=== PATIENT | female | born 1930 | race Caucasian/White ===

== ENCOUNTER 2017-12-30 17:55 | Observation (INO) | payer OTHER ==
--- NOTE | 2017-12-30 21:19 | PDOC ---
History of Present Illness - General History Source: Patient <DonaldCarlos schmitz - Last Filed: 12/30/17 21:50> - General History Source: Patient Exam Limitations: No Limitations - History of Present Illness Initial Comments: 12/30/17 21:58 The patient is a 87 year old female with a significant PMH of diverticulosis ( on baby aspirin), chronic back pain, osteoporosis, afib(on eliquis), hypothyroidism, and hypertension who presents to the emergency department with a head injury s/p fall earlier today. The patient reports that she was outside earlier today when a dog came onto her subsequently leading her to fall back. The patient reports hitting her head on the pavement. She denies any loc, dizziness, numbness, weakness or tingling sensation. She denies any vision change, chest pain, headache or shortness of breath. She denies any fever, chills, nausea, vomit, diarrhea, constipation or urinary symptoms. The patient denies any other complaints. <Tasia Rai - Last Filed: 12/30/17 23:00> - General Chief Complaint: Injury Stated Complaint: FALL Time Seen by Provider: 12/30/17 21:18 Past History - Past Medical History COPD: No GI Disorders: Yes (DIVERTICULOSIS) HTN: Yes Thyroid Disease: Yes (HYPO) - Surgical History Orthopedic Surgery: Yes (15 YRS AGO TO LT ARM) - Immunization History Immunization Up to Date: Yes - Suicide/Smoking/Psychosocial Hx Smoking History: Never smoked Have you smoked in the past 12 months: No Information on smoking cessation initiated: No Hx Alcohol Use: No Drug/Substance Use Hx: No Substance Use Type: None Hx Substance Use Treatment: No <Carlos Fuentes - Last Filed: 12/30/17 21:50> <Tasia Rai - Last Filed: 12/30/17 23:00> - Past Medical History Allergies/Adverse Reactions: Allergies Allergy/AdvReac Type Severity Reaction Status Date / Time Tetanus Vaccines and Toxoid AdvReac Severe Verified 07/20/17 13:13 [Tetanus Vaccines & Toxoid] Influenza Virus Vaccines AdvReac Verified 07/20/17 13:13 Home Medications: Ambulatory Orders Cholecalciferol (Vitamin D3) [Vitamin D-400] 2,000 unit IU DAILY 01/04/15 Levothyroxine [Synthroid -] 50 mcg PO DAILY 01/04/15 [place]-3 Fatty Acids [[place]-3] 1,000 mg PO DAILY 01/04/15 Ubidecarenone/Vit E Acet [Co Q-10 100 mg Softgel] 1 each PO DAILY 01/04/15 Vitamin E 400 iu PO DAILY 01/04/15 B Complex with Vitamin C [Vitamin B Complex-C] 1 each PO DAILY 01/16/15 Calcium Carbonate/Vitamin D3 [Calcium with Vitamin D Tablet] 1 each PO DAILY 04/22 Apixaban [Eliquis -] 2.5 mg PO BID tablet 07/31/17 Diltiazem Cd [Cardizem Cd -] 120 mg PO DAILY cap.cd.24h 07/31/17 Metoprolol Succinate [Toprol XL -] 50 mg PO BID tab.sr.24h 07/31/17 Furosemide [Lasix -] 20 mg PO WEEKLY 12/30/17 Review of Systems - Review of Systems Able to Perform ROS?: Yes Comments:: 12/30/17 21:58 CONSTITUTIONAL: (+) head injury s/p fall Absent: fever, chills, diaphoresis, generalized weakness, malaise, loss of appetite HEENT: Absent: rhinorrhea, nasal congestion, throat pain, throat swelling, difficulty swallowing, mouth swelling, ear pain, eye pain, visual Changes CARDIOVASCULAR: Absent: chest pain, syncope, palpitations, irregular heart rate, lightheadedness , peripheral edema RESPIRATORY: Absent: cough, shortness of breath, dyspnea with exertion, orthopnea, wheezing, stridor, hemoptysis GASTROINTESTINAL: Absent: abdominal pain, abdominal distension, nausea, vomiting, diarrhea, constipation, melena, hematochezia GENITOURINARY: Absent: dysuria, frequency, urgency, hesitancy, hematuria, flank pain, genital pain MUSCULOSKELETAL: Absent: myalgia, arthralgia, joint swelling SKIN: Absent: rash, itching, pallor HEMATOLOGIC/IMMUNOLOGIC: Absent: easy bleeding, easy bruising, lymphadenopathy, frequent infections ENDOCRINE: Absent: unexplained weight gain, unexplained weight loss, heat intolerance, cold intolerance NEUROLOGIC: Absent: headache, focal weakness or paresthesias, dizziness, unsteady gait, seizure, mental status changes, bladder or bowel incontinence PSYCHIATRIC: Absent: anxiety, depression, suicidal or homicidal ideation, hallucinations. <Fredi,Collisia - Last Filed: 12/30/17 23:00> *Physical Exam - Vital Signs Last Vital Signs Temp Pulse Resp BP Pulse Ox 97.7 F 64 20 195/69 98 12/30/17 18:07 12/30/17 19:44 12/30/17 19:44 12/30/17 19:44 12/30/17 19:44 <Carlos Fuentes - Last Filed: 12/30/17 21:50> - Vital Signs Last Vital Signs Temp Pulse Resp BP Pulse Ox 97.7 F 64 20 195/69 98 12/30/17 18:07 12/30/17 19:44 12/30/17 19:44 12/30/17 19:44 12/30/17 19:44 - Physical Exam Comments: 12/30/17 22:03 GENERAL:(+) abrasion on posterior aspect of scalp that is no longer oozing or bleeding. Small expanding hematoma. Well developed, well nourished. Awake and alert. No acute distress. HEENT: Normocephalic, atraumatic. PERRLA, EOMI. No conjunctival pallor. Sclera are non- icteric. Moist mucous membranes. Oropharynx is clear. NECK: Supple. Full ROM. No JVD. Carotid pulses 2+ and symmetric, without bruits. No thyromegaly. No lymphadenopathy. CARDIOVASCULAR: Regular rate and rhythm. No murmurs, rubs, or gallops. Distal pulses are 2+ and symmetric. PULMONARY: No evidence of respiratory distress. Lungs clear to auscultation bilaterally. No wheezing, rales or rhonchi. ABDOMINAL: Soft. Non-tender. Non-distended. No rebound or guarding. No organomegaly. Normoactive bowel sounds. MUSCULOSKELETAL Normal range of motion at all joints. No bony deformities or tenderness. No CVA tenderness. EXTREMITIES: No cyanosis. No clubbing. No edema. No calf tenderness. SKIN: Warm and dry. Normal capillary refill. No rashes. No jaundice. NEUROLOGICAL: Alert, awake, appropriate. Cranial nerves 2-12 intact. No deficits to light touch and temperature in face, upper extremities and lower extremities. No motor deficits in the in face, upper extremities and lower extremities. Normoreflexic in the upper and lower extremities. Normal speech. Toes are down- going bilaterally. Gait is normal without ataxia. PSYCHIATRIC: Cooperative. Good eye contact. Appropriate mood and affect. <Tasia Rai - Last Filed: 12/30/17 23:00> Heart Score/ECG Review - ECG Intrepretation Comment:: 12/30/17 22:58 Vent Rate: 65 bpm MA interval: 132 ms QRS duration: 78 ms QT/QTc: 434/451 Normal sinus rhythm Normal ECG Documentation prepared by Tasia Rai, acting as medical center representative for Carlos Fuentes MD. <Tasia Rai - Last Filed: 12/30/17 23:00> ED Treatment Course - RADIOLOGY Radiology Studies Ordered: Category Date Time Status CERVICAL SPINE CT W/O CONTR [CT] Stat CT Scan 12/30/17 20:[address] WITHOUT CONTRAST [CT] Stat CT Scan 12/30/17 20:32 Taken <Carlos Fuentes - Last Filed: 12/30/17 21:50> - LABORATORY CBC & Chemistry Diagram: 12/30/17 22:11 12/30/17 22:11 <Tasia Rai - Last Filed: 12/30/17 23:00> Medical Decision Making - Medical Decision Making 12/30/17 22:03 The patient is currently stable in the ED however patient will be kept overnight secondary to patient being on anti coagulant and having an expanding hematoma. Documentation prepared by Tasia Rai acting as medical center representative for Carlos Fuentes MD. <Tasia Rai - Last Filed: 12/30/17 23:00> *DC/Admit/Observation/Transfer - Discharge Dispostion Decision to Admit order: Yes <Carlos Fuentes - Last Filed: 12/30/17 21:50> - Attestations Scribe Attestion: 12/30/17 22:05 Documentation prepared by Tasia Rai acting as medical center representative for Carlos Fuentes DO. <Tasia Rai - Last Filed: 12/30/17 23:00> Diagnosis at time of Disposition: Fall at home, Closed head injury, Scalp hematoma - Discharge Dispostion Condition at time of disposition: Stable
[2017-12-30 22:24] LABS: BASO % 0.8 % (0-2.0); EOS % 0.9 % (0-4.5); HEMATOCRIT 41.5 % (32.4-45.2); HEMOGLOBIN 13.8 GM/dL (10.7-15.3); LYMPH % 17.4 % (8-40); MCH 32.2 pg (25.7-33.7); MCHC 33.3 g/dl (32.0-36.0); MEAN CELL VOLUME 96.6 fl (80-96); MEAN PLT VOLUME 8.4 fl (7.5-11.1); MONO % 7.7 % (3.8-10.2); NEUT % 73.2 % (42.8-82.8); PLATELET COUNT 246 K/MM3 (134-434); RBC 4.29 M/mm3 (3.60-5.2); RDW 14.1 % (11.6-15.6); WHITE BLOOD COUNT 15.7 K/mm3 (4.0-10.0)
[2017-12-30 22:51] LABS: ALBUMIN 4.1 g/dl (3.4-5.0); ANION GAP 8 (8-16); BILIRUBIN,TOTAL 0.4 mg/dL (0.2-1.0); BLOOD UREA NITROGEN 21 mg/dL (7-18); CALCIUM 8.9 mg/dL (8.5-10.1); CHLORIDE 106 mmol/L (98-107); CO2 27 mmol/L (21-32); CREATININE 0.7 mg/dL (0.55-1.02); GLUCOSE,RANDOM 93 mg/dL (74-106); SGPT/ALT 26 U/L (12-78); SODIUM 141 mmol/L (136-145); TOT PROT 7.5 g/dl (6.4-8.2)
[2017-12-30 22:52] LABS: ALK PHOS 69 U/L (45-117)
[2017-12-30 22:54] LABS: INR 1.09 (0.82-1.09); PROTHROMBIN TIME (PATIENT) 12.3 SEC (9.7-13.0)
[2017-12-30 23:12] LABS: POTASSIUM 4.4 mmol/L (3.5-5.1); SGOT/AST 28 U/L (15-37)
[2017-12-31] MEDS ORDERED: METOPROLOL TARTRATE 5 MG/5 ML VIAL IVPUSH ONE (00:44)
[2017-12-31] MEDS ORDERED: METOPROLOL TARTRATE 5 MG/5 ML VIAL ONE (00:45)
--- NOTE | 2017-12-31 00:45 | HP ---
CHIEF COMPLAINT: Head Pain s/p fall PCP: Dr. Orozco HISTORY OF PRESENT ILLNESS: The patient is a 87 year old female with a significant PMH of diverticulosis ( on baby aspirin), chronic back pain, osteoporosis, afib(on eliquis), hypothyroidism, and hypertension who presents to the emergency department with a head injury s/p fall earlier today. The patient reports that she was outside earlier today when a dog came onto her subsequently leading her to fall back. The patient reports hitting her head on the pavement. She denies any loc, dizziness, numbness, weakness or tingling sensation. She denies any vision change, chest pain, headache or shortness of breath. She denies any fever, chills, nausea, vomit, diarrhea, constipation or urinary symptoms. The patient denies any other complaints. ER course was notable for: (1) (2) (3) Recent Travel: None PAST MEDICAL HISTORY: See HPI PAST SURGICAL HISTORY: See HPI Social History: Smoking: Never Alcohol: None Drugs: None Family History: Non- Contributory Allergies Tetanus Vaccines and Toxoid [Tetanus Vaccines & Toxoid] Adverse Reaction (Severe , Verified 07/20/17 13:13) Influenza Virus Vaccines Adverse Reaction (Verified 07/20/17 13:13) HOME MEDICATIONS: Home Medications Medication Instructions Recorded Cholecalciferol (Vitamin D3) 2,000 unit IU DAILY 01/04/15 [Vitamin D-400] Levothyroxine [Synthroid -] 50 mcg PO DAILY 01/04/15 [place]-3 Fatty Acids [[place]-3] 1,000 mg PO DAILY 01/04/15 Ubidecarenone/Vit E Acet [Co Q-10 1 each PO DAILY 01/04/15 100 mg Softgel] Vitamin E 400 iu PO DAILY 01/04/15 B Complex with Vitamin C [Vitamin 1 each PO DAILY 01/16/15 B Complex-C] Calcium Carbonate/Vitamin D3 1 each PO DAILY 01/16/15 [Calcium with Vitamin D Tablet] Apixaban [Eliquis -] 2.5 mg PO BID tablet 07/31/17 Diltiazem Cd [Cardizem Cd -] 120 mg PO DAILY cap.cd.24h 07/31/17 Metoprolol Succinate [Toprol XL -] 50 mg PO BID tab.sr.24h 07/31/17 Furosemide [Lasix -] 20 mg PO WEEKLY 12/30/17 REVIEW OF SYSTEMS CONSTITUTIONAL: Absent: fever, chills, diaphoresis, generalized weakness, malaise, loss of appetite, weight change HEENT: Absent: rhinorrhea, nasal congestion, throat pain, throat swelling, difficulty swallowing, mouth swelling, ear pain, eye pain, visual changes CARDIOVASCULAR: Absent: chest pain, syncope, palpitations, irregular heart rate, lightheadedness , peripheral edema RESPIRATORY: Absent: cough, shortness of breath, dyspnea with exertion, orthopnea, wheezing, stridor, hemoptysis GASTROINTESTINAL: Absent: abdominal pain, abdominal distension, nausea, vomiting, diarrhea, constipation, melena, hematochezia GENITOURINARY: Absent: dysuria, frequency, urgency, hesitancy, hematuria, flank pain, genital pain MUSCULOSKELETAL: Absent: myalgia, arthralgia, joint swelling, back pain, neck pain SKIN: Absent: rash, itching, pallor HEMATOLOGIC/IMMUNOLOGIC: Absent: easy bleeding, easy bruising, lymphadenopathy, frequent infections ENDOCRINE: Absent: unexplained weight gain, unexplained weight loss, heat intolerance, cold intolerance NEUROLOGIC: headache Absent: focal weakness or paresthesias, dizziness, unsteady gait, seizure, mental status changes, bladder or bowel incontinence PSYCHIATRIC: Absent: anxiety, depression, suicidal or homicidal ideation, hallucinations. PHYSICAL EXAMINATION Vital Signs - 24 hr 12/30/17 12/30/17 18:07 19:44 Temperature 97.7 F Pulse Rate 71 Pulse Rate [ 64 Right Radial] Respiratory 18 20 Rate Blood Pressure 168/61 Blood Pressure 195/69 [Right Arm] O2 Sat by Pulse 94 L 98 Oximetry (%) GENERAL: Awake, alert, and fully oriented, in no acute distress. HEAD: +mid occipital hematoma, no active bleed. EYES: Pupils equal, round and reactive to light, extraocular movements intact, sclera anicteric, conjunctiva clear. No lid lag. EARS, NOSE, THROAT: Ears normal, nares patent, oropharynx clear without exudates. Moist mucous membranes. NECK: Normal range of motion, supple without lymphadenopathy, JVD, or masses. LUNGS: Breath sounds equal, clear to auscultation bilaterally. No wheezes, and no crackles. No accessory muscle use. HEART: Irregular rate and rhythm, normal S1 and S2 without murmur, rub or gallop. ABDOMEN: Soft, nontender, not distended, normoactive bowel sounds, no guarding, no rebound, no masses. No hepatomegaly or splenomegaly. MUSCULOSKELETAL: Normal range of motion at all joints. No bony deformities. L- elbow tenderness. No CVA tenderness. UPPER EXTREMITIES: 2+ pulses, warm, well-perfused. No cyanosis. No clubbing. No peripheral edema. LOWER EXTREMITIES: 2+ pulses, warm, well-perfused. No calf tenderness. No peripheral edema. NEUROLOGICAL: Cranial nerves II-XII intact. Normal speech. Gait not observed. PSYCHIATRIC: Cooperative. Good eye contact. Appropriate mood and affect. SKIN: Warm, dry, normal turgor, no rashes +eccyhmotic bruise to L- elbow noted, normal capillary refill. Laboratory Results - last 24 hr 12/30/17 12/30/17 12/30/17 22:11 22:11 22:11 WBC 15.7 H RBC 4.29 Hgb 13.8 Hct 41.5 D MCV 96.6 H MCH 32.2 MCHC 33.3 RDW 14.1 Plt Count 246 D MPV 8.4 Absolute Neuts (auto) 11.5 Neutrophils % 73.2 Lymphocytes % 17.4 D Monocytes % 7.7 Eosinophils % 0.9 D Basophils % 0.8 D Nucleated RBC % 0 PT with INR 12.30 INR 1.09 Sodium 141 Potassium 4.4 Chloride 106 Carbon Dioxide 27 Anion Gap 8 BUN 21 H Creatinine 0.7 Creat Clearance w eGFR > 60 Random Glucose 93 Calcium 8.9 Total Bilirubin 0.4 AST 28 ALT 26 Alkaline Phosphatase 69 Total Protein 7.5 Albumin 4.1 ASSESSMENT/PLAN: 87 y/o woman placed in Observation for Head Injury s/p Fall for further evaluation of their emergent condition. Plan: Place in Observation Concern for further bleeding to scalp hematoma secondary to Eliquis use Neuro checks Head CT- no acute ICH Monitor CBC, BMP Monitor vitals Consider Neuro eval if condition worsens Continue home meds Consider STR PT eval FEN- PO fluids as tolerated, Replete lytes prn, Low Na Diet DVT ppx, OOB, SCDs Code Status: Full Code Dispo: Observation Problem List - Problem (1) Closed head injury Code(s): S09.90XA - UNSPECIFIED INJURY OF HEAD, INITIAL ENCOUNTER (2) Fall at home Code(s): W19.XXXA - UNSPECIFIED FALL, INITIAL ENCOUNTER; Y92.099 - UNSP PLACE IN [facility] NON-INSTITUTIONAL RESIDENCE PLACE Qualifiers: (3) Scalp hematoma Code(s): S00.03XA - CONTUSION OF SCALP, INITIAL ENCOUNTER (4) Hypertension Code(s): I10 - ESSENTIAL (PRIMARY) HYPERTENSION Qualifiers: Hypertension type: essential hypertension Qualified Code(s): I10 - Essential (primary) hypertension (5) Hypothyroidism Code(s): E03.9 - HYPOTHYROIDISM, UNSPECIFIED Qualifiers: Hypothyroidism type: unspecified Qualified Code(s): E03.9 - Hypothyroidism , unspecified (6) Osteoporosis Code(s): M81.0 - AGE-RELATED OSTEOPOROSIS W/O CURRENT PATHOLOGICAL FRACTURE Qualifiers: Osteoporosis type: unspecified (7) Paroxysmal atrial fibrillation Code(s): I48.0 - PAROXYSMAL ATRIAL FIBRILLATION Visit type - Emergency Visit Emergency Visit: Yes ED Registration Date: 12/30/17 Care time: The patient presented to the Emergency Department on the above date and was hospitalized for further evaluation of their emergent condition. - New Patient This patient is new to me today: Yes Date on this admission: 12/31/17 - Critical Care Critical Care patient: No Hospitalist Screening - Colonoscopy Questionnaire Colonoscopy Questionnaire: Colonoscopy Questionnaire - Patient: 50 - 75 years old and never had a screening colonoscopy: Unknown History of colon or rectal polyps, or CA: Unknown History of IBD, Crohn's disease or UC: Unknown History of abdominal radiation therapy as a child: Unknown - Relative: 1 with colon or rectal CA, or polyps at age 60 or younger: Unknown Colon or rectal CA diagnosed at age 45 or younger: Unknown Multiple relatives with colon or rectal CA: Unknown - Outcome: Screening Result: Negative Screen
[2017-12-31] MEDS ORDERED: dilTIAZem HCL 60 MG TABLET (FP) ONE (01:47)
[2017-12-31] MEDS ORDERED: ACETAMINOPHEN 500 MG TABLET (FP) PO PRN (04:12)
[2017-12-31] MEDS: MELATONIN 1 MG TABLET PO SCH ×2 (04:40→21:36)
[2017-12-31 07:39] LABS: BASO % 0.6 % (0-2.0); HEMATOCRIT 34.4 % (32.4-45.2); HEMOGLOBIN 12.1 GM/dL (10.7-15.3); LYMPH % 24.3 % (8-40); MCH 33.4 pg (25.7-33.7); MEAN CELL VOLUME 95.3 fl (80-96); MEAN PLT VOLUME 8.4 fl (7.5-11.1); MONO % 10.4 % (3.8-10.2); NEUT % 62.7 % (42.8-82.8); PLATELET COUNT 218 K/MM3 (134-434); RBC 3.61 M/mm3 (3.60-5.2); RDW 13.6 % (11.6-15.6); WHITE BLOOD COUNT 9.3 K/mm3 (4.0-10.0)
[2017-12-31 08:04] LABS: ANION GAP 6 (8-16); BLOOD UREA NITROGEN 19 mg/dL (7-18); CALCIUM 8.2 mg/dL (8.5-10.1); CHLORIDE 106 mmol/L (98-107); CO2 29 mmol/L (21-32); CREATININE 0.5 mg/dL (0.55-1.02); GLUCOSE,RANDOM 86 mg/dL (74-106); POTASSIUM 3.5 mmol/L (3.5-5.1); SODIUM 141 mmol/L (136-145)
[2017-12-31 08:09] LABS: URINE APPEARANCE CLEAR; URINE BILIRUBIN NEGATIVE (<2.0 mg/dL); URINE COLOR STRAW; URINE GLUCOSE (UA) NEGATIVE (NEGATIVE); URINE KETONE NEGATIVE (NEGATIVE); URINE LEUK ESTERASE NEGATIVE (NEGATIVE); URINE NITRITE NEGATIVE (NEGATIVE); URINE PROTEIN NEGATIVE (NEGATIVE); URINE UROBILINOGEN NEGATIVE mg/dL (0.2-1.0)
--- NOTE | 2017-12-31 08:32 | PN ---
Progress Note (short form) - Note Progress Note: Dr. Martin to document today. Fall after backing up when a dog approached her. Lab stable; CXR ? findings Eliquis being held.
--- NOTE | 2017-12-31 11:49 | PN ---
Progress Note, Physician Chief Complaint: Pt lying in stretcher in no acute distress. Reports she fell yesterday when a dog came towards her, she fell outside falling backwards onto her head.Denies prodromal symptoms, LOC. Pt currently feels well, denies any chest pain, sob, n/ v/d, dizziness, lightheadedness - Current Medication List Current Medications: Active Medications Acetaminophen (Tylenol -) 500 mg PO Q6H PRN PRN Reason: PAIN LEVEL 6-10 Last Admin: 12/31/17 04:41 Dose: 500 mg Diltiazem HCl (Cardizem Cd -) 120 mg PO DAILY [facility] Last Admin: 12/31/17 10:57 Dose: 120 mg Levothyroxine Sodium (Synthroid -) 50 mcg PO DAILY@0700 [facility] Melatonin (Melatonin) 3 mg PO HS [facility] Last Admin: 12/31/17 04:40 Dose: 3 mg Metoprolol Succinate (Toprol Xl -) 50 mg PO BID [facility] Last Admin: 12/31/17 10:59 Dose: 50 mg - Objective Vital Signs: Vital Signs Temperature 98.3 F 12/31/17 08:00 Pulse Rate 64 12/31/17 08:00 Respiratory Rate 18 12/31/17 08:00 Blood Pressure 138/53 12/31/17 08:00 O2 Sat by Pulse Oximetry (%) 94 L 12/30/17 21:51 Constitutional: Yes: Well Nourished, No Distress, Calm HENT: Yes: Other (laceration on occiput, covered by gauze) Cardiovascular: Yes: Regular Rate and Rhythm Respiratory: Yes: WNL, Regular, CTA Bilaterally Gastrointestinal: Yes: WNL, Normal Bowel Sounds, Soft. No: Distention, Tenderness Genitourinary: Yes: WNL Musculoskeletal: Yes: WNL Extremities: Yes: WNL Edema: No Labs: CBC, BMP 12/31/17 06:40 12/31/17 06:40 INR, PTT INR 1.09 (0.82-1.09) 12/30/17 22:11 Problem List - Problems (1) Fall Assessment/Plan: s/p fall, mechanical, reports hitting head when falling backwards, mild occipital laceration with dressing in place head CT neg, repeat CT in 24 hours tonight hold eliquis monitor for neuro changes PT- tolerated Code(s): W19.XXXA - UNSPECIFIED FALL, INITIAL ENCOUNTER Qualifiers: Encounter type: initial encounter Qualified Code(s): W19.XXXA - Unspecified fall, initial encounter (2) Hypertension Assessment/Plan: controlled continue metoprolol, cardizem monitor Code(s): I10 - ESSENTIAL (PRIMARY) HYPERTENSION Qualifiers: Hypertension type: essential hypertension Qualified Code(s): I10 - Essential (primary) hypertension (3) Hypothyroidism Assessment/Plan: stable continue levothyroxine Code(s): E03.9 - HYPOTHYROIDISM, UNSPECIFIED Qualifiers: Hypothyroidism type: unspecified Qualified Code(s): E03.9 - Hypothyroidism , unspecified (4) Diastolic CHF Assessment/Plan: chronic, euvolemic monitor Code(s): I50.30 - UNSPECIFIED DIASTOLIC (CONGESTIVE) HEART FAILURE Qualifiers: Heart failure chronicity: chronic Qualified Code(s): I50.32 - Chronic diastolic (congestive) heart failure (5) Atrial fibrillation Assessment/Plan: chronic, in SR now [facility] Code(s): I48.91 - UNSPECIFIED ATRIAL FIBRILLATION Qualifiers: Atrial fibrillation type: chronic Qualified Code(s): I48.2 - Chronic atrial fibrillation (6) Osteoporosis Assessment/Plan: chronic, stable continue home meds Code(s): M81.0 - AGE-RELATED OSTEOPOROSIS W/O CURRENT PATHOLOGICAL FRACTURE Qualifiers: Osteoporosis type: age-related Presence of current pathological fracture: without current pathological fracture Qualified Code(s): M81.0 - Age-related osteoporosis without current pathological fracture Assessment/Plan Dispo: Home tomorrow, pending repeat head CT
[2017-12-31] MEDS ORDERED: POTASSIUM CHLORIDE TABS 20 MEQ TABLET.ER (FP) PO ONE (12:30)
--- NOTE | 2017-12-31 14:29 | EKG ---
Test Reason : Blood Pressure : / mmHG Vent. Rate : 065 BPM Atrial Rate : 065 BPM P-R Int : 132 ms QRS Dur : 078 ms QT Int : 434 ms P-R-T Axes : 060 -01 043 degrees QTc Int : 451 ms POOR DATA QUALITY, INTERPRETATION MAY BE ADVERSELY AFFECTED NORMAL SINUS RHYTHM NORMAL ECG WHEN COMPARED WITH ECG OF 30-JUL-2017 12:02, PREMATURE ATRIAL COMPLEXES ARE NO LONGER PRESENT Confirmed by DAHIANA CHRISTY, MARIAM ([id number]) on 12/31/2017 2:28:56 PM Referred By: Confirmed By:MARIAM TALBOT MD
[2018-01-01] MEDS ORDERED: LEVOTHYROXINE NA 50 MCG TABLET (FP) PO SCH (07:00)
[2018-01-01 07:32] VITALS: PULSE 54
--- NOTE | 2018-01-01 10:06 | PN ---
Progress Note (short form) - Note Progress Note: Dr. Martin to document today. She wants to go home. Wound on scalp dry; Repeat Ct head : No new findings
--- NOTE | 2018-01-01 10:16 | DS ---
Physical Examination Vital Signs: Vital Signs Temperature 97.9 F 01/01/18 06:00 Pulse Rate 54 L 01/01/18 06:00 Respiratory Rate 18 01/01/18 06:00 Blood Pressure 152/71 01/01/18 06:00 O2 Sat by Pulse Oximetry (%) 97 01/01/18 00:00 Constitutional: Yes: Well Nourished, No Distress, Calm HENT: Yes: Other (posterior occipatal hematoma) Respiratory: Yes: WNL, Regular. No: Accessory Muscle Use, Rales, Rhonchi, Tachypnea, Wheezes Gastrointestinal: Yes: WNL, Normal Bowel Sounds, Soft. No: Distention, Tenderness Musculoskeletal: Yes: WNL Extremities: Yes: WNL Edema: No Neurological: Yes: WNL, Alert, Oriented Psychiatric: Yes: WNL, Alert, Oriented Labs: CBC, BMP 12/31/17 06:40 12/31/17 06:40 Discharge Summary Reason For Visit: FALL AT HOME,CLOSED HEAD INJURY Current Active Problems Fall at home (Acute) Scalp hematoma (Acute) Atrial fibrillation (Chronic) Fall (Acute) Hospital Course: in a 87 year old female who was admitted s/ mechanical fall w/ head trauma on [facility]. Pt was monitored during her stay, without neuro changes. Head CTx2 neg. Pt has a posterior occipital hematoma which is intact. Pt ambulated safely with PT. Labs unremarkable. vitals stable. Pt is medically stable for discharge home. Home VNS/PT arranged. Condition: Good - Instructions Diet, Activity, Other Instructions: resume prev diet, activity as tolerated resume all meds f/u as directed Referrals: Dayne Orozco MD [Staff Physician] - 1 Week Disposition: VNS/HOME HEALTH CARE - Home Medications Comprehensive Discharge Medication List: Ambulatory Orders Cholecalciferol (Vitamin D3) [Vitamin D-400] 2,000 unit IU DAILY 01/04/15 Levothyroxine [Synthroid -] 50 mcg PO DAILY 01/04/15 [place]-3 Fatty Acids [[place]-3] 1,000 mg PO DAILY 01/04/15 Ubidecarenone/Vit E Acet [Co Q-10 100 mg Softgel] 1 each PO DAILY 01/04/15 Vitamin E 400 iu PO DAILY 01/04/15 B Complex with Vitamin C [Vitamin B Complex-C] 1 each PO DAILY 01/16/15 Calcium Carbonate/Vitamin D3 [Calcium with Vitamin D Tablet] 1 each PO DAILY 04/22 Apixaban [Eliquis -] 2.5 mg PO BID tablet 07/31/17 Diltiazem Cd [Cardizem Cd -] 120 mg PO DAILY cap.cd.24h 07/31/17 Metoprolol Succinate [Toprol XL -] 50 mg PO BID tab.sr.24h 07/31/17 Furosemide [Lasix -] 20 mg PO WEEKLY 12/30/17 Acetaminophen [Tylenol .Extra-Strength -] 500 mg PO Q6H PRN tablet 01/01/18
[2018-01-01 10:18] VITALS: BP 155/66; TEMP 97
== END 2018-01-01 11:33 | disposition home health service (06) ==
LOC: JER 17:55 → JERBED 21:51 → J5S 12-31 03:08
PROVIDERS: ADMIT Internal Medicine; ATTEND Internal Medicine
PROC: 3E033GC Introduction of Other Therapeutic Substance into Peripheral Vein, Percutaneous Approach (ICD-10-PCS; principal; 2017-12-30)
DX: S09.90XA Unspecified injury of head, initial encounter (principal); S00.03XA Contusion of scalp, initial encounter; I50.32 Chronic diastolic (congestive) heart failure; I11.0 Hypertensive heart disease with heart failure; I48.0 Paroxysmal atrial fibrillation; E03.9 Hypothyroidism, unspecified; M81.0 Age-related osteoporosis without current pathological fracture; K57.30 Diverticulosis of large intestine without perforation or abscess without bleeding; M54.5 Low back pain; G89.29 Other chronic pain; Z88.8 Allergy status to other drugs, medicaments and biological substances; Z79.01 Long term (current) use of anticoagulants; Z79.82 Long term (current) use of aspirin; W18.39XA Other fall on same level, initial encounter; Y93.01 Activity, walking, marching and hiking; Y92.488 Other paved roadways as the place of occurrence of the external cause
CPT/HCPCS: 36415; 70450-TC; 71046-TC-FY; 72125-TC; 80048; 80053; 81003; 85025; 85610; 93005; 93010; 94010; 96374; 97116-GP; 97161-GP; 99284-25; G0378

== ENCOUNTER 2018-01-11 10:31 | Emergency (ER) | payer OTHER ==
--- NOTE | 2018-01-11 10:41 | PDOC ---
History of Present Illness - General Chief Complaint: Wound Stated Complaint: SCALP WOUND OPENED History Source: Patient Exam Limitations: No Limitations - History of Present Illness Initial Comments: Pt, with PMH of A-fib and HTN, presents to the ED for re-check of a scalp laceration. The pt was seen at [facility] on 12/29 for a scalp laceration, after she tripped backwards and hit the back of her head on the concrete. She was admitted for 1 day because she is on anti-coagulant (Eliquis for A-fib). 2 CT scans non-contrast of the head were done, which showed only superficial hematoma. No sutures or lalo were placed. Over the past few days, the pt states that she noticed increased bleeding on the pillow from the back of her head. She has not noticed any pustular drainage. She denies headache, fevers/ chills, light-headedness or dizziness, LOC, changes to vision, chest pain, SOB, abdominal pain, nausea/vomiting, diarrhea/constipation, or leg swelling. 01/11/18 14:01 Past History - Travel Traveled outside of the country in the last 30 days: No Close contact w/someone who was outside of country & ill: No - Past Medical History Allergies/Adverse Reactions: Allergies Allergy/AdvReac Type Severity Reaction Status Date / Time Tetanus Vaccines and Toxoid AdvReac Severe Verified 01/11/18 10:38 [Tetanus Vaccines & Toxoid] Influenza Virus Vaccines AdvReac Verified 01/11/18 10:38 Home Medications: Ambulatory Orders Alendronate Sodium/Vitamin D3 [Fosamax Plus D 70 mg-5,600 Iu vIT d] 1 tab PO WEEKLY 01/11/18 Apixaban [Eliquis] 2.5 mg PO BID 01/11/18 Calcium Carb/Vitamin D3/Vit K1 [Calcium + D Soft Chewable Tab] 1 each PO DAILY 01/11/18 Diclofenac Sodium [Diclo Gel] 1 dose TP BID 01/11/18 Diltiazem [Cardizem -] 120 mg PO ONCE 01/11/18 Furosemide [Lasix -] 20 mg PO DAILY 01/11/18 Levothyroxine [Synthroid -] 50 mcg PO DAILY 01/11/18 Metoprolol Succinate 50 mg PO DAILY 01/11/18 [place]-3 Fatty Acids [[place]-3] 1,000 mg PO DAILY 01/11/18 Sulfamethoxazole/Trimethoprim [Bactrim Ds -] 1 tab PO DAILY #9 tablet 01/11/18 Ubidecarenone [Coq-10] 100 mg PO DAILY 01/11/18 Vitamin B Complex Vit C No.3 [B Complex with Vitamin C] 1 each PO DAILY Vitamin E 400 unit PO DAILY 01/11/18 COPD: No GI Disorders: Yes (DIVERTICULOSIS) HTN: Yes Thyroid Disease: Yes (HYPO) - Surgical History Orthopedic Surgery: Yes (15 YRS AGO TO LT ARM) - Immunization History Immunization Up to Date: Yes - Suicide/Smoking/Psychosocial Hx Smoking History: Never smoked Have you smoked in the past 12 months: No Hx Alcohol Use: No Drug/Substance Use Hx: No Substance Use Type: None Hx Substance Use Treatment: No Review of Systems - Review of Systems Able to Perform ROS?: Yes Is the patient limited Divehi proficient: No Constitutional: Yes: Weight Stable. No: Chills, Diaphoresis, Fever, Loss of Appetite, Malaise, Weakness HEENTM: No: Eye Pain, Blurred Vision, Recent change in vision, Double Vision, Nose Bleeding, Difficulty Swallowing Respiratory: No: Cough, Orthopnea, Shortness of Breath Cardiac (ROS): No: Chest Pain, Edema, Irregular Heart Rate, Lightheadedness, Palpitations, Syncope, Chest Tightness ABD/GI: No: Abdominal Distended, Constipated, Diarrhea, Nausea, Poor Appetite, Poor Fluid Intake, Vomiting : No: Burning, Dysuria, Frequency, Pain, Urgency Musculoskeletal: No: Back Pain, Joint Pain, Muscle Pain, Muscle Weakness, Neck Pain Integumentary: Yes: Lumps (noticed lump and bleeding on occiput after fall. has been draining more blood over last few days.). No: Bruising, Erythema, Rash Neurological: No: Headache, Numbness, Paresthesia, Seizure, Weakness, Unsteady Gait, Ataxia, Dizziness Psychiatric: No: Sleep Pattern Change, Change in Appetite Endocrine: No: Increased Urine, Change in Weight Hematologic/Lymphatic: Yes: Easy Bleeding (pt has had more bleeding since starting Eliquis). No: Anemia, Blood Clots, Easy Bruising All Other Systems: Reviewed and Negative *Physical Exam - Physical Exam General Appearance: Yes: Nourished, Appropriately Dressed, Thin. No: Apparent Distress (dried blood over occiput. Pt able to sit comfortably in bed, no current pain.) HEENT: positive: EOMI, NICOLAS, Normal ENT Inspection, Normal Voice, Symmetrical, Pharynx Normal, Hearing Decreased (pt does not have hearing aids in.), Other ( dried blood and 5 cm circular hematoma with healing scab over occiput. ). negative: Scleral Icterus (R), Scleral Icterus (L), Pharyngeal Erythema, Tonsillar Exudate, Tonsillar Erythema, Rhinorrhea Neck: positive: Trachea midline, Normal Thyroid, Supple. negative: Tender, Rigid, Lymphadenopathy (R), Lymphadenopathy (L), Tender lateral, Tender midline Respiratory/Chest: positive: Lungs Clear, Normal Breath Sounds. negative: Chest Tender, Respiratory Distress, Accessory Muscle Use Cardiovascular: positive: Regular Rhythm, Regular Rate, S1, S2. negative: Edema , JVD, Murmur Vascular Pulses: Carotid (R): 4+, Carotid (L): 4+ Gastrointestinal/Abdominal: positive: Normal Bowel Sounds, Flat, Soft. negative : Tender, Organomegaly, Pulsatile Mass Lymphatic: negative: Adenopathy, Tenderness Musculoskeletal: positive: Normal Inspection. negative: CVA Tenderness Extremity: positive: Normal Capillary Refill, Normal Inspection, Normal Range of Motion, Pelvis Stable. negative: Tender Integumentary: positive: Normal Color, Dry, Warm, Other (Healing scab and hematoma over occiput. Dried blood in hair.) Neurologic: positive: enamel shader II-XII NML intact, Fully Oriented, Alert, Normal Mood/ Affect, Normal Response, Motor Strength 5/5. negative: EOM Palsy, Facial Droop , Numbness, Sensory Deficit Procedures - Incision and Drainage I&D Site: Bilateral: Other (scalp hematoma) Betadine cleansed: Yes Anesthesia: 2% Lidocaine w/ Epi Volume(ml): 2 Blade Size: 11 Attempts: 1 Plain Packing: No Complications: other (bleeding from site (pt taking Eliquis). Placed 3 lalo, 1 removed for better placement.) Dressing: Yes (4x4 and pressure bandage with kerry wrap to control bleeding.) Progress: Area was numbed with ~2 mL lidocaine. Blood drained from hematoma, no pustular drainage noted. 3 lalo placed and ~4 mL 2% lidocaine with epi was used to help control bleeding. Pressure bandage applied and pt comfortable. 01/11/18 15:34 - Laceration/Wound Repair Head Wound Length: 2.6 to 5.0 cm Wound Explored: clean (dried blood cleaned with peroxide and saline) Wound's Depth, Shape: superficial (healing scab. laceration formed from I&D.) Irrigated w/ Saline: Yes Betadine Prep: Yes Anesthesia: 2% Lidocaine w/ Epi Amount of Anesthetic (ccs): 4 Wound Debrided: minimal Wound Repaired With: [place] Suture Size/Type: other Number of Sutures: 3 (lalo) Layer Closure: No Sterile Dressing Applied: Yes (4x4 and kerry bandage for pressure dressing.) Medical Decision Making - Medical Decision Making (entered later). Pt seen at bedside, also seen by Dr. Suarez. No acute distress. Dried blood was present on the back of the scalp, with a healing scab. The head was irrigated with hydrogen peroxide and sterile saline. A small laceration with 11 blade was placed to drain area of fluctuance of hematoma. Edematous area was reduced from draining blood. 3 lalo were inserted and a pressure bandage was applied. Pt will follow-up in 3 days for re-examination in the ER of drained area. Bactrim DS sent to pharmacy (1 tablet x10 days, 1 dose given in ER). Pt will also follow-up with Dr. Orozco. Strict return precautions given, and pt agreeable to plan. 01/11/18 15:29 *DC/Admit/Observation/Transfer Diagnosis at time of Disposition: Hematoma of scalp Qualifiers: Encounter type: subsequent encounter Qualified Code(s): S00.03XD - Contusion of scalp, subsequent encounter - Discharge Dispostion Disposition: HOME Condition at time of disposition: Improved Decision to Admit order: No - Prescriptions Prescriptions: Sulfamethoxazole/Trimethoprim [Bactrim Ds -] 1 tab PO DAILY #9 tablet - Referrals Referrals: Dayne Orozco MD [Staff Physician] - - Patient Instructions Printed Discharge Instructions: DI for Laceration Repair of the Scalp Additional Instructions: Please return in 3 days to the ER to have your scalp re-examined. Please also follow-up with your primary care physician to discuss your visit and to make sure your symptoms have resolved. Please return to the ER sooner if you have worsening pain or bleeding, feel light-headed, have fevers or chills, or any other concerns. I have also sent antibiotics to your pharmacy. Please take 1 pill per day for 9 additional days. You received 1 dose here in the ER. - Post Discharge Activity
[2018-01-11 10:58] VITALS: BP 178/80; PULSE 68; TEMP 99; BMI 19.3
--- NOTE | 2018-01-11 11:15 | PDOC ---
Attending Attestation - Resident Resident Name: Aurea Gomez - ED Attending Attestation I have performed the following: I have examined & evaluated the patient, The case was reviewed & discussed with the resident, I agree w/resident's findings & plan, Exceptions are as noted - HPI HPI: 01/11/18 11:14 87-year-old female on blood thinners for history of A. fib here status post head injury on 727. Patient was admitted at that time for 1 night observation was noted to have a scalp hematoma. Did have a normal head CT at that time here today now because of rebleeding at the wound on her scalp denies any headache nausea vomiting or change in mental status is still taking her blood thinners no other current complaints 01/11/18 13:18 - Physicial Exam PE: 01/11/18 13:18 Awake alert no acute distress. Lungs are clear bilaterally heart is regular without any murmurs rubs or gallops. Posterior scalp shows a large golf ball size hematoma there is a central scabbed lesion about the size of a quarter surrounding that area there is mild warmth and erythema and some fluctuance laterally no midline spinal tenderness - Medical Decision Making 01/11/18 13:19 79-year-old female with a scalp hematoma due to the warmth and erythema concerns for secondarily infected wound. Plan was to incision and drain lateral to the wound through intact skin I&D performed expressed both old and new hematoma contents no purulence noted due to excessive bleeding following FLAKO staple was placed 3 liking with epi was used for hemostasis a pressure dressing was placed patient only started on Bactrim twice daily told to return in 2 days for a wound eval or sooner for excessive bleeding fevers chills or any concerns
[2018-01-11] MEDS ORDERED: LIDO 2%/EPI 1:200000 PRESRVFRE (20 ML SDVIAL) ONE (12:31)
[2018-01-11] MEDS ORDERED: SULFAMETHOXAZOLE/TRIMETHOPRIM 800MG/160MG D.S. TABLET PO ONE (12:50)
[2018-01-11] MEDS ORDERED: SULFAMETHOXAZOLE/TRIMETHOPRIM 800MG/160MG D.S. TABLET ONE (12:52)
== END 2018-01-11 13:18 | disposition home or self-care (01) ==
LOC: FER 10:31
PROC: 0HQ0XZZ Repair Scalp Skin, External Approach (ICD-10-PCS; principal; 2018-01-11)
DX: S00.03XD Contusion of scalp, subsequent encounter (principal); W18.39XD Other fall on same level, subsequent encounter; I10 Essential (primary) hypertension; E03.9 Hypothyroidism, unspecified; Z79.01 Long term (current) use of anticoagulants
CPT/HCPCS: 99282-25

== ENCOUNTER 2018-01-14 10:21 | Observation (INO) | payer OTHER ==
[2018-01-14] MEDS ORDERED: AMPICILLIN NA/SULBACTAM NA 3 GM in SODIUM CHLORIDE 100 ML IVPB ONE (10:57)
[2018-01-14] MEDS ORDERED: AMPICILLIN NA/SULBACTAM NA 3 GM VIAL ONE ×3 (10:59→22:28)
--- NOTE | 2018-01-14 11:01 | PDOC ---
History of Present Illness - General Chief Complaint: Wound Stated Complaint: wound check Time Seen by Provider: 01/14/18 10:24 History Source: Patient Exam Limitations: No Limitations - History of Present Illness Initial Comments: 01/14/18 11:27 87 year old female c/ hx of HTN, afib on eliquis, hypothyroidism returns for wound check. On 12/30, the patient had a mechanical fall and sustained a hematoma to the posterior scalp. Noticed last week that the hematoma had enlarged and was seen 3 days ago in the ED. During that visit, the patient had her hematoma drained, and 3 lalo placed and placed on bactrim. The patient reported adherence to bactrim, yet states the wound continued to ooze and the hematoma enlarged. Denies fevers, chills. Reports still taking the eliquis. Came into the ED for a wound check. Past History - Past Medical History Allergies/Adverse Reactions: Allergies Allergy/AdvReac Type Severity Reaction Status Date / Time Tetanus Vaccines and Toxoid AdvReac Severe Verified 01/14/18 10:54 [Tetanus Vaccines & Toxoid] Influenza Virus Vaccines AdvReac Verified 01/14/18 10:54 Home Medications: Ambulatory Orders Alendronate Sodium/Vitamin D3 [Fosamax Plus D 70 mg-5,600 Iu vIT d] 1 tab PO WEEKLY 01/11/18 Calcium Carb/Vitamin D3/Vit K1 [Calcium + D Soft Chewable Tab] 1 each PO DAILY 01/11/18 Diltiazem [Cardizem -] 120 mg PO ONCE 01/11/18 Furosemide [Lasix -] 20 mg PO DAILY 01/11/18 Levothyroxine [Synthroid -] 50 mcg PO DAILY 01/11/18 Metoprolol Succinate 50 mg PO DAILY 01/11/18 [place]-3 Fatty Acids [[place]-3] 1,000 mg PO DAILY 01/11/18 Ubidecarenone [Coq-10] 100 mg PO DAILY 01/11/18 Vitamin B Complex Vit C No.3 [B Complex with Vitamin C] 1 each PO DAILY Vitamin E 400 unit PO DAILY 01/11/18 Acetaminophen [Tylenol .Regular Strength -] 650 mg PO Q6H PRN tablet 01/15/18 Amoxicillin/Potassium Clav [Augmentin 875-125 Tablet] 1 each PO BID #14 tablet 01/15/18 Lactobacillus Acidophilus [Bacid -] 1 each PO DAILY #30 capsule 01/15/18 COPD: No DVT: No GI Disorders: Yes (DIVERTICULOSIS) HTN: Yes Thyroid Disease: Yes (HYPO) - Surgical History Orthopedic Surgery: Yes (15 YRS AGO TO LT ARM) - Immunization History Immunization Up to Date: Yes - Suicide/Smoking/Psychosocial Hx Smoking History: Never smoked Have you smoked in the past 12 months: No Hx Alcohol Use: No Drug/Substance Use Hx: No Substance Use Type: None Hx Substance Use Treatment: No Review of Systems - Review of Systems Able to Perform ROS?: Yes Comments:: 01/14/18 11:31 GENERAL/CONSTITUTIONAL: No fever or chills. No weakness. HEAD, EYES, EARS, NOSE AND THROAT: No change in vision. No ear pain or discharge. No sore throat. CARDIOVASCULAR: No chest pain or shortness of breath. RESPIRATORY: No cough, wheezing, or hemoptysis. GASTROINTESTINAL: No nausea, vomiting, diarrhea or constipation. GENITOURINARY: No dysuria, frequency, or change in urination. MUSCULOSKELETAL: No joint or muscle swelling or pain. No neck or back pain. SKIN: +scalp hematoma NEUROLOGIC: No headache, vertigo, loss of consciousness, or change in strength/ sensation. ENDOCRINE: No increased thirst. No abnormal weight change. HEMATOLOGIC/LYMPHATIC: No anemia, easy bleeding, or history of blood clots. ALLERGIC/IMMUNOLOGIC: No hives or skin allergy. *Physical Exam - Vital Signs Last Vital Signs Temp Pulse Resp BP Pulse Ox 98.9 F 72 18 152/75 97 01/14/18 10:21 01/14/18 10:21 01/14/18 10:21 01/14/18 10:21 01/14/18 10:21 - Physical Exam Comments: 01/14/18 11:32 GENERAL: Awake, alert, and fully oriented, in no acute distress HEAD: No signs of trauma EYES: EOMI, sclera anicteric, conjunctiva clear ENT: Auricles normal inspection, hearing grossly normal, nares patent NECK: Normal ROM EXTREMITIES: Normal range of motion, no edema. No clubbing or cyanosis. No cords, erythema, or tenderness NEUROLOGICAL: Cranial nerves II through XII grossly intact. Normal speech, normal gait SKIN: Approx 5x5 cm hematoma with 3 lalo, mild oozing of blood. Erythema surrounding the hematoma. Heart Score/ECG Review #1 ECG reviewed & interpreted by me at: 12:10 01/14/18 13:27 NSR 67, no std/bobby, normal axis, normal intervals, QTC 441 msec ED Treatment Course - LABORATORY CBC & Chemistry Diagram: 01/15/18 08:00 01/15/18 08:00 Medical Decision Making - Medical Decision Making 01/14/18 11:33 Vital Signs Temp Pulse Resp BP Pulse Ox 98.9 F 72 18 152/75 97 01/14/18 10:21 01/14/18 10:21 01/14/18 10:21 01/14/18 10:21 01/14/18 10:21 It has been approximately 2 weeks, yet the patient continues to have reoccurrent developing hematomas, that now appears to have infected surrounding skin. This is concerning for potential infected hematoma. The 3 lalo have been removed by me. Wound is now reopened and I had expressed out approximately 2 to 3 cc of old blood clots. Will draw labs and cultures and initiate IV antibiotics. Case discussed with plastic surgeon Dr. Jerry Talavera. He will stop by the ER to evaluate patient's hematoma. 01/14/18 18:17 CBC, BMP 01/14/18 11:10 01/14/18 11:10 CMP Sodium 132 mmol/L (136-145) L 01/14/18 11:10 Potassium 4.5 mmol/L (3.5-5.1) 01/14/18 11:10 Chloride 98 mmol/L (98-107) 01/14/18 11:10 Carbon Dioxide 25 mmol/L (22-28) 01/14/18 11:10 Anion Gap 9 (8-16) 01/14/18 11:10 BUN 20 mg/dl (7-18) H 01/14/18 11:10 Creatinine 0.6 mg/dl (0.6-1.3) 01/14/18 11:10 Creat Clearance w eGFR > 60 (>60) 01/14/18 11:10 Random Glucose 82 mg/dl (74-106) 01/14/18 11:10 Calcium 8.8 mg/dl (8.4-10.2) 01/14/18 11:10 Total Bilirubin 0.5 mg/dl (0.2-1.0) 01/14/18 11:10 AST 35 U/L (10-42) 01/14/18 11:10 ALT 24 U/L (10-40) 01/14/18 11:10 Alkaline Phosphatase 71 U/L (32-92) 01/14/18 11:10 Total Protein 7.0 g/dl (6.4-8.3) 01/14/18 11:10 Albumin 3.8 g/dl (3.5-5.0) 01/14/18 11:10 WBC is reassurring. Dispo per plastics. 01/14/18 18:51 Pt signed out to Dr. Earl further management and disposition. *DC/Admit/Observation/Transfer Diagnosis at time of Disposition: Infection of wound hematoma - Discharge Dispostion Disposition: VNS/HOME HEALTH CARE Condition at time of disposition: Stable - Prescriptions - Referrals - Patient Instructions - Post Discharge Activity
[2018-01-14 11:36] LABS: ACTIVATED PTT 29.2 SECONDS (25.2-36.5)
[2018-01-14 11:38] LABS: URINE APPEARANCE Clear; URINE BILIRUBIN Negative (NEGATIVE); URINE COLOR Amber; URINE GLUCOSE (UA) Negative (NEGATIVE); URINE KETONE Negative (NEGATIVE); URINE LEUK ESTERASE Negative (NEGATIVE); URINE NITRITE Negative (NEGATIVE); URINE PROTEIN Negative (NEGATIVE); URINE UROBILINOGEN 0.2 (0.2-1.0)
[2018-01-14 11:38] LABS: ALBUMIN 3.8 g/dl (3.5-5.0); ALK PHOS 71 U/L (32-92); ANION GAP 9 (8-16); BILIRUBIN,TOTAL 0.5 mg/dl (0.2-1.0); BLOOD UREA NITROGEN 20 mg/dl (7-18); CALCIUM 8.8 mg/dl (8.4-10.2); CHLORIDE 98 mmol/L (98-107); CO2 25 mmol/L (22-28); CREATININE 0.6 mg/dl (0.6-1.3); GLUCOSE,RANDOM 82 mg/dl (74-106); POTASSIUM 4.5 mmol/L (3.5-5.1); SGOT/AST 35 U/L (10-42); SGPT/ALT 24 U/L (10-40); SODIUM 132 mmol/L (136-145)
[2018-01-14 11:40] LABS: INR 1.13 (0.82-1.09); PROTHROMBIN TIME (PATIENT) 12.6 SEC (10.2-13.0)
[2018-01-14 12:19] LABS: BASO % 1.2 % (0-2.0); EOS % 2.9 % (0-4.5); HEMATOCRIT 35.8 % (32.4-45.2); HEMOGLOBIN 12.2 GM/dL (10.7-15.3); LYMPH % 24.2 % (8-40); MCH 32.5 pg (25.7-33.7); MEAN CELL VOLUME 95.6 fl (80-96); MEAN PLT VOLUME 8.5 fl (7.5-11.1); MONO % 10.6 % (3.8-10.2); NEUT % 61.1 % (42.8-82.8); PLATELET COUNT 320 K/MM3 (134-434); RBC 3.75 M/mm3 (3.60-5.2); RDW 13.1 % (11.6-15.6)
[2018-01-14] MEDS: AMPICILLIN NA/SULBACTAM NA 3 GM in SODIUM CHLORIDE 100 ML IVPB SCH ×2 (17:07→23:35)
--- NOTE | 2018-01-14 21:16 | CONSULT ---
Consult Consult Specialty:: Plastic Surgery Reason for Consultation:: Hematoma of Scalp - Past Medical History [employer]: Yes: Syncope Cardio/Vascular: Yes: AFIB (New onset), HTN, Hyperlipdemia, Mitral Insufficiency , Pulmonary Hypertension Pulmonary: Yes: Other (hx granuloma) Gastrointestinal: Yes: Other (colon polyp remotely) Musculoskeletal: Yes: Osteoarthritis, Other (Osteoporosis) Endocrine: Yes: Hypothyroidism - Past Surgical History Past Surgical History: Yes: Cataract Removal, Joint Replacement - Alcohol/Substance Use Hx Alcohol Use: No History of Substance Use: reports: None - Smoking History Smoking history: Never smoked Have you smoked in the past 12 months: No - Social History Usual Living Arrangement: Alone (never , no children) ADL: Independent Occupation: retired teacher History of Recent Travel: Yes ([place] cruise 1 month ago) Home Medications - Allergies Allergies/Adverse Reactions: Allergies Allergy/AdvReac Type Severity Reaction Status Date / Time Tetanus Vaccines and Toxoid AdvReac Severe Verified 01/14/18 10:54 [Tetanus Vaccines & Toxoid] Influenza Virus Vaccines AdvReac Verified 01/14/18 10:54 - Home Medications Home Medications: Ambulatory Orders Alendronate Sodium/Vitamin D3 [Fosamax Plus D 70 mg-5,600 Iu vIT d] 1 tab PO WEEKLY 01/11/18 Apixaban [Eliquis] 2.5 mg PO BID 01/11/18 Calcium Carb/Vitamin D3/Vit K1 [Calcium + D Soft Chewable Tab] 1 each PO DAILY 01/11/18 Diltiazem [Cardizem -] 120 mg PO ONCE 01/11/18 Furosemide [Lasix -] 20 mg PO DAILY 01/11/18 Levothyroxine [Synthroid -] 50 mcg PO DAILY 01/11/18 Metoprolol Succinate 50 mg PO DAILY 01/11/18 [place]-3 Fatty Acids [[place]-3] 1,000 mg PO DAILY 01/11/18 Sulfamethoxazole/Trimethoprim [Bactrim Ds -] 1 tab PO DAILY #9 tablet 01/11/18 Ubidecarenone [Coq-10] 100 mg PO DAILY 01/11/18 Vitamin B Complex Vit C No.3 [B Complex with Vitamin C] 1 each PO DAILY Vitamin E 400 unit PO DAILY 01/11/18 Family Disease History - Family Disease History Family Disease History: Diabetes: Grandparent, CA: Sister (breast), Respiratory : Mother (TB dies < 50 y/o), Other: Father ( age 85 CVA, HTN) Physical Exam Vital Signs: Vital Signs Temperature 99.1 F 01/14/18 16:30 Pulse Rate 85 01/14/18 16:30 Respiratory Rate 17 01/14/18 16:30 Blood Pressure 148/71 01/14/18 16:30 O2 Sat by Pulse Oximetry (%) 98 01/14/18 16:30 Labs: CBC, BMP 01/14/18 11:10 01/14/18 11:10 Assessment/Plan 87 year-old woman on Eliquis anticoagulant for history of Afib. Fell hitting head several days ago- seen in [facility] ER where laceration was stapled closed. Now returns to ER with scalp hematoma. Toño removed by ER MD and small hematoma drained. Physical Exam reveals a 4cm round area of full-thickness necrotic skin on occipital scalp with small organized hematoma beneath. Necrotic full-thickness skin debrided revealing remainder of hematoma and several small active bleeding sites. This wound will require care especialy because of it's position. May eventually require surgical closure. Compressive dressing applied. Patient will hold anticoagulants for now and PMD should be notified. Patient is reliable and she will return to ER tomorrow for wound-check and dressing change. Can follow-up in office.
--- NOTE | 2018-01-14 21:25 | PDOC ---
*Physical Exam - Vital Signs Last Vital Signs Temp Pulse Resp BP Pulse Ox 99.1 F 85 17 148/71 98 01/14/18 16:30 01/14/18 16:30 01/14/18 16:30 01/14/18 16:30 01/14/18 16:30 ED Treatment Course - LABORATORY CBC & Chemistry Diagram: 01/14/18 11:10 01/14/18 11:10 - ADDITIONAL ORDERS Additional order review: Laboratory Results 01/14/18 01/14/18 01/14/18 11:20 11:10 11:10 PT with INR 12.6 INR 1.13 PTT (Actin FS) 29.2 Sodium 132 L Potassium 4.5 Chloride 98 Carbon Dioxide 25 Anion Gap 9 BUN 20 H Creatinine 0.6 Creat Clearance w eGFR > 60 Random Glucose 82 Calcium 8.8 Total Bilirubin 0.5 AST 35 ALT 24 Alkaline Phosphatase 71 Total Protein 7.0 Albumin 3.8 Urine Color Lois Urine Appearance Clear Urine pH 6.0 Ur Specific [place] 1.015 Urine Protein Negative Urine Glucose (UA) Negative Urine Ketones Negative Urine Blood Negative Urine Nitrite Negative Urine Bilirubin Negative Urine Urobilinogen 0.2 Ur Leukocyte Esterase Negative 01/14/18 11:10 RBC 3.75 MCV 95.6 MCHC 34.0 RDW 13.1 MPV 8.5 Neutrophils % 61.1 Lymphocytes % 24.2 Monocytes % 10.6 H Eosinophils % 2.9 Basophils % 1.2 - Medications Given in the ED: ED Medications Discontinued Medications Generic Name Dose Route Start Last Admin Trade Name Freq PRN Reason Stop Dose Admin Ampicillin Sodium/Sulbactam 100 mls @ 200 mls/hr 01/14/18 10:57 01/14/18 11: 23 Sodium 3 gm/ Sodium Chloride IVPB 01/14/18 11:26 200 mls/hr ONCE ONE Administration Progress Note - Progress Note Progress Note: Care of this patient received from Dr. Grande. This 87-year-old woman presented to the ER for wound check of scalp hematoma. Because of evidence of persistent bleeding and possible infection of the area of the hematoma, Dr. Talavera of plastic surgery staff consulted. Patient was seen here in the emergency room by Dr. Talavera who evacuated more hematoma and debrided necrotic skin. It was suggested that her anticoagulant(eliquis) be held of possible. Examination of the wound reveals persistent oozing from the wound debridement area. Surgicel and sterile dressing applied Because the patient is followed by , admission would be by [facility]. Case discussed with JESICA Millan. It is unclear whether anticoagulation can be safely stopped in this elderly patient with a history of atrial fibrillation . Observation status warranted for monitoring of wound persistently oozing and for cardiology consult regarding anticoagulation continuation. *DC/Admit/Observation/Transfer Diagnosis at time of Disposition: Infection of wound hematoma - Discharge Dispostion Condition at time of disposition: Stable Decision to Admit order: Yes - Referrals - Patient Instructions - Post Discharge Activity
--- NOTE | 2018-01-14 22:22 | HP ---
Admitting History and Physical - Primary Care Physician PCP: Dayne Orozco - Admission Chief Complaint: Scalp Wound, Hematoma History of Present Illness: 87 y/o woman with PMHx of HTN, HLDF, Afib (on Eliquis), Mitral Insufficiency, OA. Who present to the ED from a wound check- Scalp Hematoma. On 12/30, the patient had a mechanical fall and sustained a hematoma to the posterior scalp. Noticed last week that the hematoma had enlarged and was seen 3 days ago in the ED. During that visit, the patient had her hematoma drained, and 3 lalo placed and placed on bactrim. The patient reported adherence to bactrim, yet states the wound continued to ooze and the hematoma enlarged. Patient denies fevers, chills. Patient is on Eliquis for Afib and reports still taking it, last dose this am. History Source: Patient Limitations to Obtaining History: No Limitations - Past Medical History [employer]: Yes: Syncope Cardiovascular: Yes: AFIB (New onset), HTN, Hyperlipdemia, Mitral Insufficiency , Pulmonary Hypertension Pulmonary: Yes: Other (hx granuloma) Gastrointestinal: Yes: Other (colon polyp remotely) Musculoskeletal: Yes: Osteoarthritis, Other (Osteoporosis) Endocrine: Yes: Hypothyroidism - Past Surgical History Past Surgical History: Yes: Cataract Removal, Joint Replacement - Smoking History Smoking history: Never smoked Have you smoked in the past 12 months: No - Alcohol/Substance Use Hx Alcohol Use: No History of Substance Use: reports: None - Social History ADL: Independent Occupation: retired teacher History of Recent Travel: Yes ([place] cruise 1 month ago) Home Medications - Allergies Allergies/Adverse Reactions: Allergies Allergy/AdvReac Type Severity Reaction Status Date / Time Tetanus Vaccines and Toxoid AdvReac Severe Verified 01/14/18 10:54 [Tetanus Vaccines & Toxoid] Influenza Virus Vaccines AdvReac Verified 01/14/18 10:54 - Home Medications Home Medications: Ambulatory Orders Alendronate Sodium/Vitamin D3 [Fosamax Plus D 70 mg-5,600 Iu vIT d] 1 tab PO WEEKLY 01/11/18 Apixaban [Eliquis] 2.5 mg PO BID 01/11/18 Calcium Carb/Vitamin D3/Vit K1 [Calcium + D Soft Chewable Tab] 1 each PO DAILY 01/11/18 Diltiazem [Cardizem -] 120 mg PO ONCE 01/11/18 Furosemide [Lasix -] 20 mg PO DAILY 01/11/18 Levothyroxine [Synthroid -] 50 mcg PO DAILY 01/11/18 Metoprolol Succinate 50 mg PO DAILY 01/11/18 [place]-3 Fatty Acids [[place]-3] 1,000 mg PO DAILY 01/11/18 Sulfamethoxazole/Trimethoprim [Bactrim Ds -] 1 tab PO DAILY #9 tablet 01/11/18 Ubidecarenone [Coq-10] 100 mg PO DAILY 01/11/18 Vitamin B Complex Vit C No.3 [B Complex with Vitamin C] 1 each PO DAILY Vitamin E 400 unit PO DAILY 01/11/18 Family Disease History - Family Disease History Family Disease History: Diabetes: Grandparent, CA: Sister (breast), Respiratory : Mother (TB dies < 50 y/o), Other: Father ( age 85 CVA, HTN) Review of Systems - Review of Systems Constitutional: reports: No Symptoms Eyes: reports: No Symptoms HENT: reports: Other (Scalp Hematome) Neck: reports: No Symptoms Cardiovascular: reports: No Symptoms Respiratory: reports: No Symptoms Gastrointestinal: reports: No Symptoms Genitourinary: reports: No Symptoms Physical Examination Vital Signs: Vital Signs Temperature 99.1 F 01/14/18 16:30 Pulse Rate 85 01/14/18 16:30 Respiratory Rate 17 01/14/18 16:30 Blood Pressure 148/71 01/14/18 16:30 O2 Sat by Pulse Oximetry (%) 98 01/14/18 16:30 Constitutional: Yes: Well Nourished, No Distress, Calm Eyes: Yes: WNL, Conjunctiva Clear, EOM Intact HENT: Yes: Normocephalic, Other (scalp hematoma to occiput, active oozing) Neck: Yes: WNL, Supple, Trachea Midline Cardiovascular: Yes: Pulse Irregular, Murmur, S1, S2 Respiratory: Yes: WNL, Regular, CTA Bilaterally Gastrointestinal: Yes: WNL, Normal Bowel Sounds, Soft Renal/: Yes: WNL Breast(s): Yes: WNL Musculoskeletal: Yes: WNL Extremities: Yes: WNL Edema: No Peripheral Pulses WNL: Yes Wound/Incision: Yes: Other (dressing with mod saturated blood through gauze pads and binder) Neurological: Yes: WNL, Alert, Oriented, Cran Nerves II-XII Intact ...Motor Strength: WNL Psychiatric: Yes: WNL, Alert, Oriented Labs: CBC, BMP 01/14/18 11:10 01/14/18 11:10 Laboratory Results - last 24 hr 01/14/18 01/14/18 01/14/18 11:10 11:10 11:10 WBC 8.0 RBC 3.75 Hgb 12.2 Hct 35.8 MCV 95.6 MCH 32.5 MCHC 34.0 RDW 13.1 Plt Count 320 D MPV 8.5 Absolute Neuts (auto) 4.9 Neutrophils % 61.1 Lymphocytes % 24.2 Monocytes % 10.6 H Eosinophils % 2.9 Basophils % 1.2 Nucleated RBC % 0 PT with INR 12.6 INR 1.13 PTT (Actin FS) 29.2 Sodium 132 L Potassium 4.5 Chloride 98 Carbon Dioxide 25 Anion Gap 9 BUN 20 H Creatinine 0.6 Creat Clearance w eGFR > 60 Random Glucose 82 Calcium 8.8 Total Bilirubin 0.5 AST 35 ALT 24 Alkaline Phosphatase 71 Total Protein 7.0 Albumin 3.8 Urine Color Urine Appearance Urine pH Ur Specific [place] Urine Protein Urine Glucose (UA) Urine Ketones Urine Blood Urine Nitrite Urine Bilirubin Urine Urobilinogen Ur Leukocyte Esterase 01/14/18 11:20 WBC RBC Hgb Hct MCV MCH MCHC RDW Plt Count MPV Absolute Neuts (auto) Neutrophils % Lymphocytes % Monocytes % Eosinophils % Basophils % Nucleated RBC % PT with INR INR PTT (Actin FS) Sodium Potassium Chloride Carbon Dioxide Anion Gap BUN Creatinine Creat Clearance w eGFR Random Glucose Calcium Total Bilirubin AST ALT Alkaline Phosphatase Total Protein Albumin Urine Color Lois Urine Appearance Clear Urine pH 6.0 Ur Specific [place] 1.015 Urine Protein Negative Urine Glucose (UA) Negative Urine Ketones Negative Urine Blood Negative Urine Nitrite Negative Urine Bilirubin Negative Urine Urobilinogen 0.2 Ur Leukocyte Esterase Negative Current Medications Generic Name Dose Route Start Last Admin Trade Name Freq PRN Reason Stop Dose Admin Acetaminophen 650 mg 01/14/18 23:20 01/14/18 23:33 Tylenol - PO 650 mg Q6H PRN Administration PAIN OR FEVER Diltiazem HCl 120 mg 01/15/18 10:00 Cardizem Cd - PO DAILY ORALIA Furosemide 20 mg 01/15/18 06:00 01/15/18 05:44 Lasix - PO 20 mg [id number]@0600 [place] Administration Ampicillin Sodium/Sulbactam 100 mls @ 200 mls/hr 01/14/18 16:45 01/15/18 05: 43 Sodium 3 gm/ Sodium Chloride IVPB 200 mls/hr Q6H [place]ALIA Administration Metoprolol Succinate 50 mg 01/15/18 10:00 Toprol Xl - PO DAILY [facility] Multivitamins 1 each 01/15/18 10:00 Total B With C - PO DAILY [facility] [id number] Ethyl Esters 1 gm 01/15/18 10:00 Lovaza - PO DAILY [facility] Vitamin E 400 unit 01/15/18 10:00 Vitamin E - PO DAILY [facility] Imaging - Results Chest X-ray: Image Reviewed EKG: Image Reviewed Problem List - Problems (1) Scalp hematoma Code(s): S00.03XA - CONTUSION OF SCALP, INITIAL ENCOUNTER Qualifiers: Encounter type: subsequent encounter Qualified Code(s): S00.03XD - Contusion of scalp, subsequent encounter (2) Infection of wound hematoma Code(s): T14.8XXA - OTHER INJURY OF UNSPECIFIED BODY REGION, INITIAL ENCOUNTER; L08.9 - LOCAL INFECTION OF THE SKIN AND SUBCUTANEOUS TISSUE, UNSP (3) Atrial fibrillation Code(s): I48.91 - UNSPECIFIED ATRIAL FIBRILLATION Qualifiers: Atrial fibrillation type: chronic Qualified Code(s): I48.2 - Chronic atrial fibrillation (4) UTI (urinary tract infection) Code(s): N39.0 - URINARY TRACT INFECTION, SITE NOT SPECIFIED (5) Hypertension Code(s): I10 - ESSENTIAL (PRIMARY) HYPERTENSION Qualifiers: Hypertension type: essential hypertension Qualified Code(s): I10 - Essential (primary) hypertension (6) Hypothyroidism Code(s): E03.9 - HYPOTHYROIDISM, UNSPECIFIED Qualifiers: Hypothyroidism type: unspecified Qualified Code(s): E03.9 - Hypothyroidism , unspecified (7) Osteoporosis Code(s): M81.0 - AGE-RELATED OSTEOPOROSIS W/O CURRENT PATHOLOGICAL FRACTURE Qualifiers: Osteoporosis type: age-related Presence of current pathological fracture: without current pathological fracture Qualified Code(s): M81.0 - Age-related osteoporosis without current pathological fracture Assessment/Plan 87 y/o woman placed on Observation for Scalp Hematoma, Scalp Wound for further evaluation of their emergent condition. Plan: 1. Scalp Hematoma// Scalp Wound Infection - likely secondary mechanical fall - Seen in ED by Dr. Key, who is following - Continue wound care - Started on Ampicillin in ED, will continue - HOB elevated - Hold Eliquis tonight - Monitor vitals - Monitor CBC, BMP 2. Afib - [id number] - EKG- NSR - Will hold Eliquis tonight, secondary to scalp bleed 3. HTN - stable - continue home med - monitor renal function 4. Hypothyroidism - continue home med 5. HLD - continue statin 6. OA - Tylenol prn 7. FEN - PO fluids as tolerated - Replete lytes prn - Low Na Diet 8. DVT ppx - OOB - SCDs - Hold Eliquis secondary to scalp bleed Code Status: Full Code Dispo: Observation Visit type - Emergency Visit Emergency Visit: Yes ED Registration Date: 01/14/18 Care time: The patient presented to the Emergency Department on the above date and was hospitalized for further evaluation of their emergent condition. - New Patient This patient is new to me today: Yes Date on this admission: 01/14/18 - Critical Care Critical Care patient: No Hospitalist Screening - Colonoscopy Questionnaire Colonoscopy Questionnaire: Colonoscopy Questionnaire - Patient: 50 - 75 years old and never had a screening colonoscopy: Unknown History of colon or rectal polyps, or CA: Unknown History of IBD, Crohn's disease or UC: Unknown History of abdominal radiation therapy as a child: Unknown - Relative: 1 with colon or rectal CA, or polyps at age 60 or younger: Unknown Colon or rectal CA diagnosed at age 45 or younger: Unknown Multiple relatives with colon or rectal CA: Unknown - Outcome: Screening Result: Negative Screen
[2018-01-14] MEDS ORDERED: ACETAMINOPHEN 325 MG TABLET (FP) PO PRN (23:20)
[2018-01-15 00:44] VITALS: BMI 19.5
[2018-01-15] MEDS: AMPICILLIN NA/SULBACTAM NA 3 GM in SODIUM CHLORIDE 100 ML IVPB SCH (05:43)
[2018-01-15] MEDS ORDERED: FUROSEMIDE 20 MG TABLET (FP) PO SCH (06:00)
[2018-01-15 08:22] LABS: BASO % 1.2 % (0-2.0); EOS % 3.4 % (0-4.5); HEMATOCRIT 34.5 % (32.4-45.2); HEMOGLOBIN 11.4 GM/dl (10.7-15.3); LYMPH % 23.7 % (8-40); MCH 32.5 pg (25.7-33.7); MCHC 33.1 g/dl (32.0-36.0); MEAN PLT VOLUME 8.1 fl (7.5-11.1); NEUT % 60.7 % (42.8-82.8); PLATELET COUNT 288 K/MM3 (134-434); RBC 3.52 M/mm3 (3.60-5.2); RDW 12.4 % (11.6-15.6); WHITE BLOOD COUNT 7.6 K/mm3 (4.0-10.8)
[2018-01-15 08:36] LABS: ANION GAP 8 (8-16); BLOOD UREA NITROGEN 16 mg/dl (7-18); CALCIUM 8.3 mg/dl (8.4-10.2); CHLORIDE 102 mmol/L (98-107); CO2 25 mmol/L (22-28); CREATININE 0.6 mg/dl (0.6-1.3); GLUCOSE,RANDOM 96 mg/dl (74-106); POTASSIUM 3.8 mmol/L (3.5-5.1); SODIUM 135 mmol/L (136-145)
[2018-01-15] MEDS ORDERED: PT OWN MED DRAWER 7, Y5N ONE (09:24)
--- NOTE | 2018-01-15 09:39 | DS ---
Physical Exam: SUBJECTIVE: Patient seen and examined, reports feeling well, ambulatory at bedside, denies any headache or dizziness OBJECTIVE: patient is a 87 y/o woman with PMHx of HTN, HLDF, Afib (on Eliquis), Mitral Insufficiency, OA. Who present to the ED from a wound check- Scalp Hematoma. On 12/30, the patient had a mechanical fall and sustained a hematoma to the posterior scalp. Noticed last week that the hematoma had enlarged and was seen 3 days ago in the ED. During that visit, the patient had her hematoma drained, and 3 lalo placed and placed on bactrim. The patient reported adherence to bactrim, yet states the wound continued to ooze and the hematoma enlarged. Patient denies fevers, chills. Patient is on Eliquis for Afib and reports still taking it, last dose this am. Vital Signs Period Temp Pulse Resp BP Sys/Smith Pulse Ox Last 24 Hr 98.1 F-99.1 F 72-85 17-20 142-182/53-75 94-98 PHYSICAL EXAM GENERAL: The patient is awake, alert, and fully oriented, in no acute distress. HEAD: Normal with no signs of trauma. EYES: PERRL, extraocular movements intact, sclera anicteric, conjunctiva clear. ENT: Ears normal, nares patent, oropharynx clear without exudates, moist mucous membranes. NECK: Trachea midline, full range of motion, supple. LUNGS: Breath sounds equal, clear to auscultation bilaterally, no wheezes, no crackles, no accessory muscle use. HEART: irregular rate and rhythm, S1, S2 without murmur, rub or gallop. ABDOMEN: Soft, nontender, nondistended, normoactive bowel sounds, no guarding, no rebound, no hepatosplenomegaly, no masses. EXTREMITIES: 2+ pulses, warm, well-perfused, no edema. NEUROLOGICAL: Cranial nerves II through XII grossly intact. Normal speech, gait not observed. PSYCH: Normal mood, normal affect. SKIN: 4cm flap slap laceration to ocipital scalp, dried blood noted, Warm, dry , normal turgor, no rashes or lesions noted. LABS Laboratory Results - last 24 hr 01/14/18 01/14/18 01/14/18 11:10 11:10 11:10 WBC 8.0 RBC 3.75 Hgb 12.2 Hct 35.8 MCV 95.6 MCH 32.5 MCHC 34.0 RDW 13.1 Plt Count 320 D MPV 8.5 Absolute Neuts (auto) 4.9 Neutrophils % 61.1 Lymphocytes % 24.2 Monocytes % 10.6 H Eosinophils % 2.9 Basophils % 1.2 Nucleated RBC % 0 PT with INR 12.6 INR 1.13 PTT (Actin FS) 29.2 Sodium 132 L Potassium 4.5 Chloride 98 Carbon Dioxide 25 Anion Gap 9 BUN 20 H Creatinine 0.6 Creat Clearance w eGFR > 60 Random Glucose 82 Calcium 8.8 Total Bilirubin 0.5 AST 35 ALT 24 Alkaline Phosphatase 71 Total Protein 7.0 Albumin 3.8 Urine Color Urine Appearance Urine pH Ur Specific [place] Urine Protein Urine Glucose (UA) Urine Ketones Urine Blood Urine Nitrite Urine Bilirubin Urine Urobilinogen Ur Leukocyte Esterase 01/14/18 01/15/18 01/15/18 11:20 08:00 08:00 WBC 7.6 RBC 3.52 L Hgb 11.4 Hct 34.5 MCV 98.0 H MCH 32.5 MCHC 33.1 RDW 12.4 Plt Count 288 MPV 8.1 Absolute Neuts (auto) 4.6 Neutrophils % 60.7 Lymphocytes % 23.7 Monocytes % 11.0 H Eosinophils % 3.4 Basophils % 1.2 Nucleated RBC % PT with INR INR PTT (Actin FS) Sodium 135 L Potassium 3.8 Chloride 102 Carbon Dioxide 25 Anion Gap 8 BUN 16 Creatinine 0.6 Creat Clearance w eGFR > 60 Random Glucose 96 Calcium 8.3 L Total Bilirubin AST ALT Alkaline Phosphatase Total Protein Albumin Urine Color Lois Urine Appearance Clear Urine pH 6.0 Ur Specific [place] 1.015 Urine Protein Negative Urine Glucose (UA) Negative Urine Ketones Negative Urine Blood Negative Urine Nitrite Negative Urine Bilirubin Negative Urine Urobilinogen 0.2 Ur Leukocyte Esterase Negative Microbiology 01/14/18 11:10 Blood - Peripheral Venous Blood Culture - Preliminary NO GROWTH OBTAINED AFTER 24 HOURS, INCUBATION TO CONTINUE FOR 4 DAYS. 01/14/18 11:10 Blood - Peripheral Venous Blood Culture - Preliminary NO GROWTH OBTAINED AFTER 24 HOURS, INCUBATION TO CONTINUE FOR 4 DAYS. 01/14/18 11:20 Urine - Urine Clean Catch Urine Culture - Final HOSPITAL COURSE: patient was admitted from the emergency department to the medical surgical unit to observation for a scalp laceration, patient was evaluated in the emergency department by plastic surgeon, Dr Talavera. Hematoma was evacuated by Dr Talavera in the emergency department. compression dressing applied. Case disscussed with Dr Talavera at bedside, dressing removed, slight oozing of blood noted compression bandage applied.Appointment scheduled with Dr. Talavera on January 18 at 11 AM in his office. Patient was treated with Unasyn for 24 hours. Eliqus was held. she has a past history of hypertension, home medications continue blood pressure remained at goal. pLAN: - Follow-up with Dr. Talavera at 11:00 AM on January - Discharge home with [facility] -continue to hold eliquis Date of Admission:01/14/18 Date of Discharge: 01/15/18 Minutes to complete discharge: 45 Discharge Summary Reason For Visit: wound check Current Active Problems Infection of wound hematoma (Acute) Condition: Stable - Instructions Referrals: Dayne Orozco MD [Primary Care Provider] - Jerry Talavera MD [Staff Physician] - 01/18/18 11:00 am Disposition: [facility]/HOME HEALTH CARE - Home Medications Comprehensive Discharge Medication List: Ambulatory Orders Alendronate Sodium/Vitamin D3 [Fosamax Plus D 70 mg-5,600 Iu vIT d] 1 tab PO WEEKLY 01/11/18 Apixaban [Eliquis] 2.5 mg PO BID 01/11/18 Calcium Carb/Vitamin D3/Vit K1 [Calcium + D Soft Chewable Tab] 1 each PO DAILY 01/11/18 Diltiazem [Cardizem -] 120 mg PO ONCE 01/11/18 Furosemide [Lasix -] 20 mg PO DAILY 01/11/18 Levothyroxine [Synthroid -] 50 mcg PO DAILY 01/11/18 Metoprolol Succinate 50 mg PO DAILY 01/11/18 [place]-3 Fatty Acids [[place]-3] 1,000 mg PO DAILY 01/11/18 Sulfamethoxazole/Trimethoprim [Bactrim Ds -] 1 tab PO DAILY #9 tablet 01/11/18 Ubidecarenone [Coq-10] 100 mg PO DAILY 01/11/18 Vitamin B Complex Vit C No.3 [B Complex with Vitamin C] 1 each PO DAILY Vitamin E 400 unit PO DAILY 01/11/18
[2018-01-15] MEDS ORDERED: VITAMIN B COMPLEX W/C COMBO TABLET (FP) PO SCH (10:00)
[2018-01-15] MEDS ORDERED: PATIENT'S OWN MEDICATION (NON-FORMULARY) (Ubidecarenone [Coq-10] 100 MG) PO SCH (10:00)
[2018-01-15] MEDS ORDERED: VITAMIN E 400 INTERNATIONAL-UNITS CAPSULE (FP) PO SCH (10:00)
[2018-01-15] MEDS ORDERED: FUROSEMIDE 40 MG TABLET (FP) PO SCH (10:00)
[2018-01-15] MEDS ORDERED: OMEGA-3 ACID ETHYL ESTERS (FATTY-ACIDS) 1 GM CAPSULE (FP) PO SCH (10:00)
--- NOTE | 2018-01-15 10:50 | PN ---
Progress Note (short form) - Note Progress Note: ID Consult dictated S/P mechanical fall with head trauma/ hematoma S/P evacuation of hematoma Continue empiric unasyn May substitute Augmentin 875 mg po bid upon discharge
[2018-01-15] MEDS ORDERED: AMPICILLIN NA/SULBACTAM NA 3 GM/100 ML BAG IVPB SCH (12:00)
[2018-01-15 14:03] VITALS: BP 112/50; PULSE 76; TEMP 99.2
--- NOTE | 2018-01-15 14:16 | CONS ---
DATE OF CONSULTATION: DATE OF DICTATION: 01/15/2018 HISTORY OF PRESENT ILLNESS: The patient is an 87-year-old female who is evaluated for possible infected hematoma. The patient fell, sustaining trauma to the back of her head. She developed a large hematoma in her scalp. This occurred on December 30, 2017. She was seen in the emergency room on January 11, 2018, with increased swelling of the posterior scalp. She was evaluated. An incision and drainage was performed and she was prescribed Bactrim. Patient returned with worsening scalp swelling. She was admitted on January 14, 2018, at which time she was seen in consultation by Plastic Surgery. A large hematoma was evacuated from her scalp and lalo were removed. She was empirically treated with Unasyn for possible secondary infection. At the present time she is awake and alert. She has complaints of head pain. However, no complaints of fever or chills. No purulent drainage has been reported. She has remained afebrile with a normal white blood cell count. Blood culture is preliminarily negative. PAST MEDICAL HISTORY: Positive for hypertension, atrial fibrillation, hypothyroidism, diverticulosis, hyperlipidemia, osteoarthritis. ALLERGIES: TETANUS TOXOID and INFLUENZA VACCINE. MEDICATIONS: Include Fosamax; Eliquis; Cardizem; Lasix; Synthroid; metoprolol. SOCIAL HISTORY: She resides in the community. She is a nonsmoker, nondrinker. SYSTEMS REVIEW:Neurologic: No loss of consciousness, seizure activity, focal weakness. Cardiac: Positive for atrial fibrillation, on Eliquis. Respiratory: Negative cough or sputum production. Gastrointestinal: Negative vomiting or diarrhea. Genitourinary: Negative for urinary tract infection. LABORATORY DATA: White count 7.6, hematocrit 34.5, platelet count 288. BUN 16, creatinine 0.6. INR 1.1. Urinalysis: Negative leukocyte esterase. Blood cultures: Negative. PHYSICAL EXAMINATION:General: She is awake and alert. She is in no acute distress. Vital Signs: Temperature 98.6, blood pressure 142/56, pulse 84 and irregular, respirations 20 per minute. HEENT: Sclerae are anicteric. Examination of the occiput: There is a wound present with dulce maria bloody drainage. No purulent is noted. It is tender to palpation. Slight fluctuance. No erythema. Neck: Supple. Cardiac: Heart sounds irregular, S1, S2. Lungs: Clear. Abdomen: Soft and nontender. Extremities: Negative for edema. IMPRESSION: 1. Status post mechanical fall with head trauma. 2. Status post evacuation of hematoma 3. Possible infected hematoma. RECOMMENDATIONS: Continue empiric Unasyn. Continue local wound care. May substitute Augmentin upon discharge and follow up with plastic surgeon as an outpatient. Thank you for the kind referral. SHAMIR LYMAN M.D. PATRICIA/[id number]
--- NOTE | 2018-01-17 08:56 | EKG ---
Test Reason : Blood Pressure : / mmHG Vent. Rate : 067 BPM Atrial Rate : 067 BPM P-R Int : 140 ms QRS Dur : 080 ms QT Int : 418 ms P-R-T Axes : 071 024 058 degrees QTc Int : 441 ms POOR DATA QUALITY, INTERPRETATION MAY BE ADVERSELY AFFECTED NORMAL SINUS RHYTHM NORMAL ECG WHEN COMPARED WITH ECG OF 30-DEC-2017 22:42, T WAVE AMPLITUDE HAS INCREASED IN ANTERIOR LEADS Confirmed by DAHIANA CHRISTY, MARIAM ([id number]) on 01/17/2018 8:55:59 AM Referred By: EMRE FERNÁNDEZ Confirmed By:MARIAM TALBOT MD
== END 2018-01-15 15:30 | disposition home health service (06) ==
LOC: FER 10:21 → FM/S 22:00 → UNDOADMOB 22:35 → FM/S 22:35
PROVIDERS: ADMIT Internal Medicine; ATTEND Nurse Practitioner Family
DX: S00.03XD Contusion of scalp, subsequent encounter (principal); T14.8XXD Other injury of unspecified body region, subsequent encounter; W19.XXXD Unspecified fall, subsequent encounter; L08.9 Local infection of the skin and subcutaneous tissue, unspecified; I48.91 Unspecified atrial fibrillation; I10 Essential (primary) hypertension; I48.2 Chronic atrial fibrillation; N39.0 Urinary tract infection, site not specified; E03.9 Hypothyroidism, unspecified; M81.0 Age-related osteoporosis without current pathological fracture; Z79.01 Long term (current) use of anticoagulants; Z88.8 Allergy status to other drugs, medicaments and biological substances
CPT/HCPCS: 36415; 71045-TC-FY; 80048; 80053; 81003; 85025; 85610; 85730; 87040; 87086; 93005; 96365; 96375; 99285-25; G0378